=== PATIENT | male | born 1980 | race Caucasian/White ===

== ENCOUNTER 2017-01-11 09:49 | Emergency (ER) | payer OTHER ==
[2017-01-11 10:12] VITALS: BP 134/77
[2017-01-11] MEDS ORDERED: IBUPROFEN 400 MG TABLET PO ONE (11:45)
[2017-01-11] MEDS ORDERED: IBUPROFEN 400 MG TABLET ONE (11:50)
--- NOTE | 2017-01-11 12:30 | ERNOTE ---
Lower Extremity HPI - Narrative Date of Service: 01/11/17 - General Lower Extremities Pain: foot: right, ankle: right Time Seen by Provider: 01/11/17 11:33 Source: patient Exam Limitations: no limitations - Immun/Allergies/Home Medications Immunizations: IMMUNIZATION HX Immunizations Up to Date Yes History of Influenza Vaccine Yes Hx Pneumococcal Vaccination No Allergies/Adverse Reactions: Allergies Allergy/AdvReac Type Severity Reaction Status Date / Time No Known Allergies Allergy Verified 01/11/17 10:12 Home Medications: HOME MEDICATIONS NK [No Home Medication] 01/11/17 [Last Taken Unknown] - History of Present Illness Narrative: This 36-year-old male presents to the emergency room with right ankle and foot pain. States he twisted his ankle at work. He has been taking over- the-counter pain medicine but pain increased and increased swelling today. He was unable to do his normal daily functions without pain. Date (Duration): 01/11/17 Occurred: last week Location of Incident: work Method of Injury: Reports: twisted Loss of Consciousness: Reports: no loss of consciousness Modifying Factors - (Worsens): Reports: movement Associated Symptoms: Reports: unable to bear weight Other Injuries: Reports: none Subsequent Symptoms: Denies: sensory loss, numbness Review of Systems - Review of Systems Constitutional: Present: no symptoms reported EYE: Present: no symptoms reported ENT: Present: no symptoms reported Respiratory: Present: no symptoms reported Cardiology: Present: no symptoms reported Gastrointestinal/Abdominal: Present: no symptoms reported Genitourinary: Present: no symptoms reported Musculoskeletal: Present: See HPI, joint pain, joint swelling Skin: Present: lumps - swollen to later aspect of foot and ankle Neurological: Present: no symptoms reported Endocrine: Present: no symptoms reported Hematologic/Lymphatic: Present: no symptoms reported Psych: Present: no symptoms reported All Other Systems: All systems neg except as marked - Patient's Past Medical History Patient History - Medical: Depression Patient History - Cardiac/Respiratory: No pertinent hx Patient History - Cancer: No Hx of Cancer Patient History - Surgical Procedures: T & A Patient History - Other: None - Social History Living Situations: home Abuse History: No History of abuse Psych History: Hx of Depression Smoking Status: Current every day smoker Have you smoked in the past 12 months: Yes Alcohol Use: occasionally Drug Use: marijuana - Immunizations Immunizations Up to Date: Yes Hx Pneumococcal Vaccination: No History of Influenza Vaccine: Yes Physical Exam - Physical Exam Narrative: Patient has pain to right lateral foot and ankle. Swollen and tender to touch. Patient does have sensation to toes, capillary refill brisk, circulation is intact along with sensation and movement. General Appearance: Present: wd/wn, alert, no apparent distress Eye Exam: Normal inspection: bilateral Ears, Nose, Throat: Present: normal ENT inspection Neck: Present: normal inspection Respiratory: Present: no respiratory distress Cardiovascular/Chest: Present: regular rate, rhythm Peripheral Pulses: N=norm/S=strong/W=weak/B=bound/A=absent: Dorsalis-pedis (R): Normal, Dorsalis-pedis (L): Normal Gastrointestinal/Abdominal: Present: normal bowel sounds Extremity Exam: Present: normal except -, joint swelling - painful swollen ankle and lateral aspect of right foot. Neurological Exam: Present: alert, oriented, normal mood/affect, no motor/ sensory deficits Skin Exam: Present: warm/dry Lymphatic Exam: Present: no adenopathy ED Progress - Date and Time Seen: Date and Time: 01/11/17 12:54 patient refused cam boot, stated he has one at home and will use that one. - Vital Signs Patient's Vital Signs:: I have reviewed the patient's vital signs. Vital Signs: Vital Signs 01/11/17 10:09 Temperature 36.1 C L Pulse Rate 62 Respiratory 13 Rate Blood Pressure 134/77 O2 Sat by Pulse 95 Oximetry - X-Ray X-Ray #1 X-Ray: foot Interpretation: Reviewed by me X-ray Comments: Findings: There are mild midfoot arthritic changes significant only for patient's age. There is a lytic focus in the navicular nonspecific. There is mild spurring of the calcaneus. There is a oblique fracture through the base of the fifth metatarsal. This has somewhat irregular margins suggesting this may be subacute fracture. Clinical correlation is necessary. No other fractures identified. IMPRESSION: OBLIQUE INTRA-ARTICULAR FRACTURE BASE OF THE FIFTH METATARSAL AGE INDETERMINATE. MILD MIDFOOT ARTHRITIC CHANGES. NO OTHER ACUTE OSSEOUS PATHOLOGY IDENTIFIED. Electronically signed by Cecilio Cruz M.D.. X-Ray #2 X-Ray: ankle Interpretation: Reviewed by me X-ray Comments: IMPRESSION: 1. Possible fracture of indeterminate age at the base of the fifth metatarsal bone. Consider dedicated images of the right foot. 2. Anterolateral soft tissue swelling throughout the right ankle. Electronically signed by Rachele Abdi M.D.. - Progress/Reassessment Chief Complaint: Ankle Injury/ Pain Progress:: Improved Plan - Plan Plan: This provider spoke with Dr. Howard. Dr. Howard advised to put patient in a cam walker boot and to keep him nonweight bearing. Patient is to call clinic today and schedule a follow-up apt in the clinic on Wednesday. Patient states he has a cam walker boot at home and he will utilize that one. he is refusing on in the ED. Departure Clinical Impression: Ankle sprain Qualifiers: Encounter type: initial encounter Involved ligament of ankle: other ligament Laterality: right Qualified Code(s): S93.491A - Sprain of other ligament of right ankle, initial encounter Fracture of right foot Qualifiers: Encounter type: initial encounter Fracture type: closed Qualified Code(s): S92.901A - Unspecified fracture of right foot, initial encounter for closed fracture - Departure Disposition: Home Follow Up Needed Condition: Stable Instructions: Cast or Splint Care, [id number], Ankle Pain, Metatarsal Fracture Additional Instructions: Patient is to remain nonweight bearing. Patient is to wear a boot at all times , may take it off during bathing. Patient is to follow up with clinic today and schedule an appointment for Wednesday to see Dr. Howard. Patient may take [id number] pain medications as needed patient will be off of work until he has his follow-up appointment with Dr. Patel. Return to the emergency room if pain is uncontrolled by [id number] pain medications. returned to the emergency room if symptoms become worse or new symptoms arise. Referrals: Erick Howard MD [Staff Physician] -
== END 2017-01-11 12:57 | disposition home or self-care (01) ==
LOC: ER 09:49
DX: S93.491A Sprain of other ligament of right ankle, initial encounter (principal); S92.901A Unspecified fracture of right foot, initial encounter for closed fracture; F17.210 Nicotine dependence, cigarettes, uncomplicated; X50.1XXA Overexertion from prolonged static or awkward postures, initial encounter

== ENCOUNTER 2017-02-22 19:06 | Emergency (ER) | payer SELFPAY ==
[2017-02-22 19:17] VITALS: BP 139/68
--- NOTE | 2017-02-22 19:29 | ERNOTE ---
ENT HPI Date of Service: 02/22/17 Time Seen by Provider: 02/22/17 19:20 Source: patient - Immun/Allergies/Home Medications Immunizations: IMMUNIZATION HX Immunizations Up to Date Yes History of Influenza Vaccine Yes Hx Pneumococcal Vaccination No Allergies/Adverse Reactions: Allergies Allergy/AdvReac Type Severity Reaction Status Date / Time No Known Allergies Allergy Verified 01/11/17 10:12 Home Medications: HOME MEDICATIONS NK [No Home Medication] 01/11/17 [Last Taken Unknown] - History of Present Illness Narrative: . Patient states that he went to bed fine when he woke up this like his gums are swollen. Patient states that the gums on his back Teeth are swollen. Date (Duration): 02/22/17 Severity: Present: mild ENT Location: Present: dental Prearrival Treatment: Present: no prearrival treatment Modifying Factors - Improves: Reports: nothing Modifying Factors - Worsens: Reports: nothing Associated Symptoms - ENT: Reports: denies symptoms. Denies: fever, malaise Prior Treament: Denies: recently seen, treated by physician, similar symptoms before Review of Systems - Review of Systems Constitutional: Present: no symptoms reported EYE: Present: no symptoms reported, double vision Respiratory: Present: no symptoms reported Cardiology: Present: no symptoms reported Gastrointestinal/Abdominal: Present: no symptoms reported Genitourinary: Present: no symptoms reported Musculoskeletal: Present: no symptoms reported Skin: Present: no symptoms reported Neurological: Present: no symptoms reported Endocrine: Present: no symptoms reported Hematologic/Lymphatic: Present: no symptoms reported Psych: Present: no symptoms reported All Other Systems: All systems neg except as marked - Patient's Past Medical History Patient History - Medical: Depression Patient History - Cardiac/Respiratory: No pertinent hx Patient History - Cancer: No Hx of Cancer Patient History - Surgical Procedures: T & A Patient History - Other: None - Social History Living Situations: alone Abuse History: No History of abuse Psych History: Hx of Depression Smoking Status: Current every day smoker Have you smoked in the past 12 months: Yes Do you dip or chew tobacco: No Alcohol Use: occasionally Drug Use: marijuana - Immunizations Immunizations Up to Date: Yes Hx Pneumococcal Vaccination: No History of Influenza Vaccine: Yes Physical Exam - Physical Exam Narrative: Unable to observe any swelling. Patient does have some discoloration to his gums most likely gingivitis. Patient says he does not go to the dentist very often." He does not do that that's not his thing". I attempted to educate this patient on the need for oral care. Patient left AMA General Appearance: Present: wd/wn, alert, no apparent distress Eye Exam: Normal inspection: bilateral Ears, Nose, Throat: Present: normal ENT inspection Neck: Present: normal inspection Respiratory: Present: no respiratory distress, no accessory muscle use Neurological Exam: Present: alert, oriented Skin Exam: Present: normal color, warm/dry ED Progress - Vital Signs Vital Signs: Vital Signs 02/22/17 19:11 Temperature 36.9 C Pulse Rate 68 Respiratory 18 Rate Blood Pressure 139/68 O2 Sat by Pulse 97 Oximetry - Progress/Reassessment Chief Complaint: Dental Problem Progress:: Unchanged Plan - Plan Plan: Patient left AMA. He was educated about good oral hydration. Departure Clinical Impression: Gingivitis - Departure Disposition: Against medical advice
== END 2017-02-22 20:10 | disposition left against medical advice (07) ==
LOC: ER 19:06
DX: K05.10 Chronic gingivitis, plaque induced (principal); Z72.0 Tobacco use

== ENCOUNTER 2017-02-23 10:40 | Emergency (ER) | payer OTHER ==
[2017-02-23 10:47] VITALS: BP 139/79
[2017-02-23] MEDS ORDERED: PENICILLIN V POTASSIUM 250 MG TABLET PO ONE (10:50)
[2017-02-23] MEDS ORDERED: PENICILLIN V POTASSIUM 250 MG TABLET ONE (10:56)
--- NOTE | 2017-02-23 11:06 | ERNOTE ---
ENT HPI Date of Service: 02/23/17 Time Seen by Provider: 02/23/17 10:44 Source: patient Exam Limitations: no limitations - Immun/Allergies/Home Medications Immunizations: IMMUNIZATION HX Immunizations Up to Date Yes History of Influenza Vaccine Yes Hx Pneumococcal Vaccination No Allergies/Adverse Reactions: Allergies Allergy/AdvReac Type Severity Reaction Status Date / Time No Known Allergies Allergy Verified 02/23/17 10:47 Home Medications: HOME MEDICATIONS Penicillin V Potassium [Pen-Vee K] 500 mg PO QID #40 tab 02/23/17 [Last Taken Unknown] - History of Present Illness Narrative: Patient presents with dental pain and facial swelling. He noticed this yesterday when he awoke from a nap. he was seen here but apparently left AMA without ABx. He relates this seems more swollen than yesterday. No fever, no trouble breathing or swallowing. Right sided. No other Sx with it. ENT Location: Present: other - right jaw and tooth Modifying Factors - Improves: Reports: nothing Modifying Factors - Worsens: Reports: nothing Associated Symptoms - ENT: Reports: tooth pain. Denies: fever, cough, voice change, sore throat, drooling, jaw swelling Prior Treament: Reports: recently seen Review of Systems - Review of Systems Constitutional: Absent: fever ENT: Absent: sore throat, throat swelling Respiratory: Absent: shortness of breath Neurological: Absent: weakness - Patient's Past Medical History Patient History - Medical: Depression Patient History - Cardiac/Respiratory: No pertinent hx Patient History - Cancer: No Hx of Cancer Patient History - Surgical Procedures: T & A Patient History - Other: None - Social History Living Situations: alone Abuse History: No History of abuse Psych History: Hx of Depression Smoking Status: Current every day smoker Have you smoked in the past 12 months: Yes Alcohol Use: occasionally Drug Use: marijuana - Immunizations Immunizations Up to Date: Yes Hx Pneumococcal Vaccination: No History of Influenza Vaccine: Yes Physical Exam - Physical Exam General Appearance: Present: alert, no apparent distress Eye Exam: Normal inspection: bilateral, PERRL: bilateral Ears, Nose, Throat: Present: other - He has poor dentition. There are caries right mandibular with tenderenss here and gingival erythema and edema but without clear abscess I can drain. There is some mild right jaw swelling but I cannot identify any clear abscess that I can drain for him. There is no evidence of ANUG or Saurav's angina. Neck: Present: normal inspection, other - no masses, no Saurav's angina Respiratory: Present: no respiratory distress, normal breath sounds, no accessory muscle use, lungs clear Cardiovascular/Chest: Present: regular rate, rhythm Extremity Exam: Present: normal range of motion Neurological Exam: Present: alert, normal mood/affect, no motor/sensory deficits , log cut off sawyer II-XII nml as tested. Absent: motor weakness Skin Exam: Present: normal color, warm/dry ED Progress - Vital Signs Patient's Vital Signs:: I have reviewed the patient's vital signs. Vital Signs: Vital Signs 02/23/17 10:45 Temperature 37.1 C Pulse Rate 66 Respiratory 14 Rate Blood Pressure 139/79 O2 Sat by Pulse 96 Oximetry - Progress/Reassessment Chief Complaint: Dental Problem Progress Note-Subjective: 02/23/17 11:05 Needs dental f/u and ABx. I called dental clinic. He can go in at 8am and wait to be seen tomorrow. I instructed him to do so. No toxicity or Saurav's angina. Departure Clinical Impression: Pain, dental - Departure Disposition: Home self-care Condition: Stable Instructions: Dental Abscess, [id number] Additional Instructions: Take antibiotics as directed. You need to be seen by a dentist as soon as possible, tomorrow at the latest. Ibuprofen/Tylenol. Return for fever, increased swelling, trouble breathing or swallowing or if your condition worsens or changes in any way. Prescriptions: Penicillin V Potassium [Pen-Vee K] 500 mg PO QID #40 tab
== END 2017-02-23 11:00 | disposition home or self-care (01) ==
LOC: ER 10:40
DX: K08.89 Other specified disorders of teeth and supporting structures (principal); F17.210 Nicotine dependence, cigarettes, uncomplicated

== ENCOUNTER 2017-12-15 14:07 | Emergency (ER) | payer OTHER ==
[2017-12-15 14:14] VITALS: BP 145/95
[2017-12-15] MEDS ORDERED: IBUPROFEN 400 MG TABLET PO ONE (15:30)
[2017-12-15] MEDS ORDERED: IBUPROFEN 400 MG TABLET ONE (15:31)
--- NOTE | 2017-12-15 15:36 | ERNOTE ---
Lower Extremity HPI - General Lower Extremities Pain: foot: right Time Seen by Provider: 12/15/17 14:31 Source: patient Exam Limitations: no limitations - Immun/Allergies/Home Medications Immunizations: IMMUNIZATION HX Immunizations Up to Date Yes History of Influenza Vaccine Yes Hx Pneumococcal Vaccination No Allergies/Adverse Reactions: Allergies Allergy/AdvReac Type Severity Reaction Status Date / Time No Known Allergies Allergy Verified 12/15/17 14:13 Home Medications: HOME MEDICATIONS NK [No Home Medication] 12/15/17 [Last Taken Unknown] - History of Present Illness Narrative: Patient started to have right foot pain yesterday, he was able to work as a [employer] , no pain when not weight bearing, no injury. This morning when he first put weight on his foot the pain was unbearable, has not tried any pain meds yet Occurred: yesterday Method of Injury: Reports: no apparent injury Modifying Factors - (Worsens): Reports: other - weight bearing Other Injuries: Reports: none Subsequent Symptoms: Denies: sensory loss Review of Systems - Review of Systems Constitutional: Absent: recent illness ENT: Absent: nasal drainage, sore throat Respiratory: Absent: shortness of breath, cough Cardiology: Absent: chest pain Gastrointestinal/Abdominal: Absent: nausea, abdominal pain Genitourinary: Present: no symptoms reported Musculoskeletal: Present: See HPI Skin: Absent: rash Neurological: Absent: See HPI, weakness, numbness - Patient's Past Medical History Patient History - Medical: Depression Patient History - Cardiac/Respiratory: No pertinent hx Patient History - Cancer: No Hx of Cancer Patient History - Surgical Procedures: T & A Patient History - Other: None - Social History Living Situations: home Abuse History: No History of abuse Psych History: Hx of Depression Smoking Status: Current every day smoker Have you smoked in the past 12 months: Yes Do you dip or chew tobacco: No Alcohol Use: none Drug Use: none - Immunizations Immunizations Up to Date: Yes Hx Pneumococcal Vaccination: No History of Influenza Vaccine: Yes Physical Exam - Physical Exam General Appearance: Present: wd/wn, alert, no apparent distress, obese Respiratory: Present: no respiratory distress Extremity Exam: Present: normal inspection, normal range of motion, other - tender on left plantar surface just distal no heel, no other tenderness Neurological Exam: Present: alert, oriented, no motor/sensory deficits Skin Exam: Present: normal color, warm/dry ED Progress - Vital Signs Patient's Vital Signs:: I have reviewed the patient's vital signs. Vital Signs: Vital Signs 12/15/17 14:10 Temperature 37 C Pulse Rate 94 Respiratory 22 H Rate Blood Pressure 145/95 O2 Sat by Pulse 94 Oximetry - Progress/Reassessment Chief Complaint: Lower Extremity Pain/ Injury Departure Clinical Impression: Plantar fasciitis of right foot - Departure Disposition: Home self-care Condition: Good Instructions: Plantar Fasciitis, Form - Excuse from Work, School, or Physical Activity Additional Instructions: take over counter ibuprofen (200mg) four tablets three times a day it is very important that you do the foot and calf stretches as discussed Referrals: Erick Howard MD [Staff Physician] -
== END 2017-12-15 15:38 | disposition home or self-care (01) ==
LOC: ER 14:07
DX: M72.2 Plantar fascial fibromatosis; F17.200 Nicotine dependence, unspecified, uncomplicated

== ENCOUNTER 2019-12-13 21:22 | Inpatient (IN) ==
--- NOTE | 2019-12-13 21:46 | ERNOTE ---
Dyspnea - General Presenting Symptoms: shortness of breath Time Seen by Provider: 12/13/19 21:30 Source: patient Exam Limitations: no limitations - Immun/Allergies/Home Medications Immunizations: IMMUNIZATION HX Immunizations Up to Date Yes History of Influenza Vaccine Yes Hx Pneumococcal Vaccination No Allergies/Adverse Reactions: Allergies No Known Allergies Allergy (Verified 08/03/19 13:57) Home Medications: HOME MEDICATIONS varenicline 0.5 mg (11)-1 mg (42) tablets in a dose pack See Rx Instructions PO PER PKG DIR #53 tab 08/03/19 [Last Taken Unknown] rosuvastatin 40 mg tablet 40 mg PO DAILY #30 tab 08/09/19 [Last Taken Unknown] - History of Present Illness Narrative: Patient presents today with oxygen saturations in the 70s. His states that she is noticed he has gotten worse and worse over the past couple of weeks. He does have an appointment with Dr. Tran to address these issues tomorrow but tonight noticed he had fallen asleep and was breathing very irregularly and got concerned. 2 to 3 weeks ago his CPAP mask broke and he has not been able to use it for that amount of time. Severity: moderate, severe Treatment [employer]: none Initiating event: Reports: other Frequency of episodes: Reports: no prior episodes Associated Symptoms-Dyspnea: Reports: denies symptoms Review of Systems - Review of Systems Constitutional: Absent: recent illness, fever, chills EYE: Absent: vision changes ENT: Present: nose congestion, nasal drainage Respiratory: Present: shortness of breath. Absent: cough Cardiology: Absent: chest pain, palpitations Gastrointestinal/Abdominal: Absent: nausea, vomiting Genitourinary: Absent: frequency, dysuria Musculoskeletal: Absent: back pain, muscle pain Skin: Absent: rash Neurological: Absent: headache, dizziness/light-headedness Endocrine: Absent: excessive sweating, flushing Hematologic/Lymphatic: Absent: easy bruising, easy bleeding Medical History (Last Reviewed 12/13/19 @ 21:42 by Jordan Mace DO) Obesity (Chronic) STARR (obstructive sleep apnea) Obesity (BMI 30.0-34.9) Surgical History: Surgical History (Last Reviewed 12/13/19 @ 21:42 by Jordan Mace DO) H/O hand surgery Family History: Family History (Last Reviewed 12/13/19 @ 21:42 by Jordan Mace DO) Mother Diabetes COPD (chronic obstructive pulmonary disease) CHF (congestive heart failure) Father CHF (congestive heart failure) COPD (chronic obstructive pulmonary disease) Cancer Social History: (Last Reviewed 12/13/19 @ 21:42 by Jordan Mace DO) Social History: Marital status: Single current occupational status: employed current occupation: the [employer] Highest education level completed: some college, no degree Service: No Tobacco: Smoking Status: Current every day smoker tobacco type: cigarettes Smoking cigarettes per day: 20.0 Smoking packs per day: 1.0 Years smoked: 20 Smoking pack-years: 20.00 Alcohol: alcohol intake: never Substance Use: substance use type: does not use Dietary Habits: caffeine: Yes Physical Exam - Physical Exam General Appearance: Present: wd/wn, alert, mild distress Head Exam: Present: normal inspection, no evidence of injury Eye Exam: Normal inspection: bilateral Neck: Present: normal inspection, nontender, supple Respiratory: Present: accessory muscle use, decreased breath sounds Cardiovascular/Chest: Present: regular rate, rhythm, no murmur Gastrointestinal/Abdominal: Present: normal bowel sounds, nontender, nondistended Back Exam: Present: normal inspection, normal range of motion Extremity Exam: Present: extremity edema - 4+ B/L Neurological Exam: Present: alert, oriented, normal mood/affect, no motor/sensory deficits Skin Exam: Present: normal color, warm/dry Lymphatic Exam: Present: no adenopathy Progress - Results and Orders Patient's Lab Results:: I have reviewed the patient's lab results. - Vital Signs Patient's Vital Signs:: I have reviewed the patient's vital signs. - EKG EKG #1 EKG: NSR, nonspecific ST T wave changes EKG read: Interp. by me - X-Ray X-Ray #1 X-Ray: chest Interpretation: Interp. by me X-ray Comments: Moderate pulmonary edema, limited by body habitus. - CT/Ultrasound CT/Ultrasound Narrative: CTA chest: 1. Normal CT angiography of the chest. 2. Negative for proximal artery pulmonary embolus. Distal quarternary branches are poorly visualized due to attenuation from large PMI and noncomplex bolus. 3. Pulmonary hypertension - Progress/Reassessment Progress:: Improved Progress Note-Subjective: 12/14/19 02:05 I spoke with the patient he wanted to go outside and have a cigarette but I did convince him we would put a patch on and he agreed to admission. Spoke with Dr. Romeo he agrees with admission for oxygen, IV antibiotics and further monitoring. Departure Clinical Impression: Bronchitis, Hypoxia, Hypercarbia - Departure Disposition: Still a patient Condition: Serious
[2019-12-13 22:08] LABS: Hemoglobin 14.7 gm/dL (13.5-18.0); Mean Cell Volume 98.2 fl (78-100); Mean Corpuscular Hemoglobin 29.5 pg (27-31); Mean Platelet Volume 10.2 fl (8-11.3); Neutrophil # 9.6 K/mm3 (1.3-6.0); Neutrophil % 67.6 % (42-75.0); Platelet Count 156 K/mm3 (150-450); Red Blood Count 4.99 M/mm3 (4.7-6.0); Red Cell Distribution Width 18.7 % (11.5-14.0); White Blood Count 14.2 K/mm3 (4.0-10.5)
[2019-12-13] MEDS ORDERED: FUROSEMIDE 10 MG/ML VIAL IV ONE (22:18)
[2019-12-13 22:27] LABS: ALT 61 U/L (19-67); AST 36 U/L (0-48); Albumin * 3.2 gm/dl (3.4-5.0); Alkaline Phosphatase * 79 U/L (50-170); Anion Gap 8.3 mmol/L (6.8-13.8); BNP * 43 pg/mL (5-140); BUN/Creatinine Ratio 10.2 (9.0-21.6); Bilirubin, Total 0.4 mg/dL (0.0-1.1); Blood Urea Nitrogen 10 mg/dL (6-23); Ca. Corrected For Albumin 8.9 mg/dL (8.4-10.2); Calcium * 8.6 mg/dL (7.9-10.9); Carbon Dioxide 34.6 mmol/L (24-32.6); Chloride 101 mmol/L (97-106); Glucose * 206 mg/dL (70-110); Potassium 3.9 mmol/L (3.4-4.6); Sodium 140 mmol/L (132-142); Troponin I Less than 0.017 ng/mL (0.00-0.10)
[2019-12-14] MEDS ORDERED: cefTRIAXone SODIUM 1,000 MG/100 ML BAG IV ONE (01:54)
[2019-12-14] MEDS: NICOTINE 21 MG PATC TD SCH (02:18)
[2019-12-14] MEDS: ALBUTEROL SULFATE/IPRATROPIUM 3 ML NEBU IH SCH ×5 (07:59→23:11)
[2019-12-14] MEDS ORDERED: NORMAL SALINE IV ONE (08:00)
[2019-12-14] MEDS ORDERED: METHYLPREDNISOLONE SOD SUCC IV ONE (08:00)
[2019-12-14] MEDS ORDERED: ACETAMINOPHEN 325 MG TABLET PO PRN (08:02)
[2019-12-14 08:03] LABS: Hematocrit 54.5 % (42.0-52.0); Hemoglobin 16.1 gm/dL (13.5-18.0); Mean Cell Volume 99.8 fl (78-100); Mean Corpuscular Hemoglobin 29.5 pg (27-31); Mean Corpuscular Hgb Conc 29.5 g/dl (32-36); Mean Platelet Volume 9.9 fl (8-11.3); NRBC# 0.1 k/mm3 (0-1); Neutrophil % 69.8 % (42-75.0); Platelet Count 148 K/mm3 (150-450); Red Blood Count 5.46 M/mm3 (4.7-6.0); Red Cell Distribution Width 19.5 % (11.5-14.0); White Blood Count 14.3 K/mm3 (4.0-10.5)
[2019-12-14 08:12] LABS: Anion Gap 9.3 mmol/L (6.8-13.8); BUN/Creatinine Ratio 7.6 (9.0-21.6); Calcium * 8.5 mg/dL (7.9-10.9); Carbon Dioxide 36.7 mmol/L (24-32.6); Estimated Creat Clear 115.1
[2019-12-14] MEDS: ENOXAPARIN SODIUM 40 MG/0.4 ML SYRG SC SCH (08:50)
--- NOTE | 2019-12-14 12:27 | HP ---
Chief Complaint - Chief Complaint Date of Service: 12/14/19 Time of Service: 11:40 Chief Complaint: Obtunded History of Present Illness: I have seen Mr. Cruz one time in the office on August 03, 2019. He has obstructive sleep apnea, smokes cigarettes, and has a BMI over 50. For the last 2 months he is been without his usual BiPAP machine at home. It is broken. For the last 2 weeks he has had increasing problems breathing and a progressive cough. No fever chills or sweats. For a few days prior to this hospitalization he has been somewhat more somnolent. An increase in somnolence precipitated his transfer to our hospital ER via ambulance. It was thought to possibly have some pulmonary edema, however it is hard to evaluate his chest x-ray due to his large size. He was given 1 dose of IV Lasix in the emergency room. His BNP today was normal, so that in conjunction with the history and physical exam leads me to believe he has acute bronchitis leading to acute on chronic respiratory failure. His chest x-ray shows no infil trate. I reviewed both pictures and the report. His blood gases in the emergency room showed hypercarbia, hypoxemia and significant acidosis. Acidosis is respiratory. His most recent blood gases f rom this morning are a little better. We will continue to follow this. I suspect he not only has obstructive sleep apnea but also pickwickian syndrome. Most likely he has chronic hypoxemia and hypercarbia, to what extent is unknown, as he does not have prior blood gases. In the emergency room he was also started on IV antibiotics which we will continue. This morning I added DuoNeb nebulizer treatments, IV steroids and adjusted his BiPAP settings. His CBC showed on admission and again on repeat this morning a slight elevation in white blood cell count. This morning his chemistries show a slightly high potassium. We will follow both his blood chemistries and blood count. His ex- who is present said that in addition to the above problems, he has not slept well for at least 2 weeks and probably longer. He was in fact, exhausted. His best friend plus his brother were also present in the room at the time of my evaluation today and I explained in detail what I thought we were dealing with and what the treatment plan was. it is uncertain but he will probably be here in the hospital for at least 2 or 3 more days Medical History (Last Reviewed 12/14/19 @ 12:21 by Gamaliel Menjivar MD) Obesity (Chronic) STARR (obstructive sleep apnea) Obesity (BMI 30.0-34.9) Surgical History: Surgical History (Last Reviewed 12/14/19 @ 12:21 by Gamaliel Menjivar MD) H/O hand surgery Family History: Family History (Last Reviewed 12/14/19 @ 12:21 by Gamaliel Menjivar MD) Mother Diabetes COPD (chronic obstructive pulmonary disease) CHF (congestive heart failure) Father CHF (congestive heart failure) COPD (chronic obstructive pulmonary disease) Cancer Social History: (Last Reviewed 12/14/19 @ 12:21 by Gamaliel Menjivar MD) Social History: Marital status: Single current occupational status: employed current occupation: [employer] Highest education level completed: some college, no degree Service: No Tobacco: Smoking Status: Current every day smoker tobacco type: cigarettes Smoking cigarettes per day: 20.0 Smoking packs per day: 1.0 Years smoked: 20 Smoking pack-years: 20.00 Alcohol: alcohol intake: never Substance Use: substance use type: does not use Dietary Habits: caffeine: Yes Review Of Systems (GEN) - Review of Systems Generalized/Overall Review: Present: No Symptoms Reported - Patient is obtunded and is unable to provide a review of systems. During my exam he opened his eyes and smiled slightly, but immediately his eyes were closed again. Immunizations: IMMUNIZATION HX Immunizations Up to Date Yes History of Influenza Vaccine Yes Hx Pneumococcal Vaccination No Allergies/Adverse Reactions: Allergies Allergy/AdvReac Type Severity Reaction Status Date / Time No Known Allergies Allergy Verified 08/03/19 13:57 Home Medications: HOME MEDICATIONS varenicline 0.5 mg (11)-1 mg (42) tablets in a dose pack See Rx Instructions PO PER PKG DIR #53 tab 08/03/19 [Last Taken Unknown] rosuvastatin 40 mg tablet 40 mg PO DAILY #30 tab 08/09/19 [Last Taken Unknown] Exam - Exam Vital Signs: Vital Signs - Last Taken Temp 37.1 C 12/14/19 10:00 Pulse 88 12/14/19 11:44 Resp 28 H 12/14/19 11:44 BP 150/78 H 12/14/19 10:00 Pulse Ox 96 12/14/19 11:44 Constitutional: Present: Well developed, No distress, Obtunded, Morbidly obese ENT Exam: Present: normal ENT inspection Eye Exam: bilateral eye: normal inspection Neck: Present: normal inspection, trachea midline. Absent: lymphadenopathy (R), lymphadenopathy (L), thyromegaly Back Exam: Present: normal inspection Breasts: Present: Other - Male gynecomastia Respiratory: Present: no respiratory distress, decreased breath sounds, other - Scattered wheezes and rhonchi Cardiovascular/Chest: Present: regular rate, rhythm, no gallop, no JVD, no murmur, edema - 2-3+ edema each lower extremity. This is chronic. Peripheral Pulses: carotid (R): 1+, carotid (L): 1+, dorsalis-pedis (R): 1+, dorsalis-pedis (L): 1+ Abdomen: Present: Normal bowel sounds, soft, nontender, nondistended, no hepatospenomegaly, obese /Rectal: Present: Exam deferred Extremity: Present: normal capillary refill, swelling Skin Exam: Present: normal color, warm/dry, no cyanosis Lymphatic: Present: no adenopathy Neurologic: Present: other - Obtunded Appearance: Present: appropriate appearance Eye contact: Absent: good eye contact, normal speech Thoughts: Present: other - Unknown. Obtunded. Diagnostic Studies: Abnormal Lab Results 12/13/19 12/13/19 12/13/19 Range/Units 21:47 21:48 21:48 WBC 14.2 H (4.0-10.5) K/mm3 Hct (42.0-52.0) % MCHC 30.0 L (32-36) g/dl RDW 18.7 H (11.5-14.0) % Plt Count (150-450) K/mm3 Immature Gran % (Auto) 3.20 H (0.001-0.429) % Immature Gran # (Auto) 0.45 H (0.000-0.0310) K/mm3 Lymphocytes % 18.2 L (20-51) % Eosinophils % 3.3 H (0.0-3.0) % Neutrophils # 9.6 H (1.3-6.0) K/mm3 Monocytes # (0.0-1.0) k/mm3 D-Dimer (0.19-0.49) ug/mL pCO2 (35.0-48.0) mmHg pO2 (83.0-108.0) mmHg HCO3 (21.0-28.0) mmol/L Total CO2 (19.0-24.0) mmol/L Base Excess (-2.0-3.0) mmol/L ABG pH (7.35-7.45) ABG O2 Sat (Measured) (94.0-98.0) % Potassium (3.4-4.6) mmol/L Carbon Dioxide 34.6 H (24-32.6) mmol/L BUN/Creatinine Ratio (9.0-21.6) Random Glucose 206 H (70-110) mg/dL Lactic Acid, Venous 2.1 H (0.4-2.0) mmol/L Albumin 3.2 L (3.4-5.0) gm/dl 12/13/19 12/13/19 12/14/19 Range/Units 21:48 22:57 04:42 WBC (4.0-10.5) K/mm3 Hct (42.0-52.0) % MCHC (32-36) g/dl RDW (11.5-14.0) % Plt Count (150-450) K/mm3 Immature Gran % (Auto) (0.001-0.429) % Immature Gran # (Auto) (0.000-0.0310) K/mm3 Lymphocytes % (20-51) % Eosinophils % (0.0-3.0) % Neutrophils # (1.3-6.0) K/mm3 Monocytes # (0.0-1.0) k/mm3 D-Dimer 0.69 H (0.19-0.49) ug/mL pCO2 67.8 H 100.5 H* (35.0-48.0) mmHg pO2 77.6 L (83.0-108.0) mmHg HCO3 29.5 H 36.6 H (21.0-28.0) mmol/L Total CO2 31.6 H 39.7 H (19.0-24.0) mmol/L Base Excess 4.0 H (-2.0-3.0) mmol/L ABG pH 7.26 L 7.18 L* (7.35-7.45) ABG O2 Sat (Measured) 93.1 L 92.9 L (94.0-98.0) % Potassium (3.4-4.6) mmol/L Carbon Dioxide (24-32.6) mmol/L BUN/Creatinine Ratio (9.0-21.6) Random Glucose (70-110) mg/dL Lactic Acid, Venous (0.4-2.0) mmol/L Albumin (3.4-5.0) gm/dl 12/14/19 12/14/19 12/14/19 Range/Units 06:05 07:51 07:51 WBC 14.3 H (4.0-10.5) K/mm3 Hct 54.5 H (42.0-52.0) % MCHC 29.5 L (32-36) g/dl RDW 19.5 H (11.5-14.0) % Plt Count 148 L (150-450) K/mm3 Immature Gran % (Auto) 3.10 H (0.001-0.429) % Immature Gran # (Auto) 0.45 H (0.000-0.0310) K/mm3 Lymphocytes % 15.5 L (20-51) % Eosinophils % 3.2 H (0.0-3.0) % Neutrophils # 10.0 H (1.3-6.0) K/mm3 Monocytes # 1.1 H (0.0-1.0) k/mm3 D-Dimer (0.19-0.49) ug/mL pCO2 79.0 H* (35.0-48.0) mmHg pO2 70.1 L (83.0-108.0) mmHg HCO3 (21.0-28.0) mmol/L Total CO2 29.8 H (19.0-24.0) mmol/L Base Excess -3.2 L (-2.0-3.0) mmol/L ABG pH 7.16 L* (7.35-7.45) ABG O2 Sat (Measured) 88.2 L (94.0-98.0) % Potassium 5.0 H D (3.4-4.6) mmol/L Carbon Dioxide 36.7 H (24-32.6) mmol/L BUN/Creatinine Ratio 7.6 L (9.0-21.6) Random Glucose 158 H (70-110) mg/dL Lactic Acid, Venous (0.4-2.0) mmol/L Albumin (3.4-5.0) gm/dl 12/14/19 Range/Units 09:30 WBC (4.0-10.5) K/mm3 Hct (42.0-52.0) % MCHC (32-36) g/dl RDW (11.5-14.0) % Plt Count (150-450) K/mm3 Immature Gran % (Auto) (0.001-0.429) % Immature Gran # (Auto) (0.000-0.0310) K/mm3 Lymphocytes % (20-51) % Eosinophils % (0.0-3.0) % Neutrophils # (1.3-6.0) K/mm3 Monocytes # (0.0-1.0) k/mm3 D-Dimer (0.19-0.49) ug/mL pCO2 70.7 H* (35.0-48.0) mmHg pO2 43.1 L (83.0-108.0) mmHg HCO3 33.2 H (21.0-28.0) mmol/L Total CO2 35.3 H (19.0-24.0) mmol/L Base Excess 3.8 H (-2.0-3.0) mmol/L ABG pH 7.29 L (7.35-7.45) ABG O2 Sat (Measured) 71.7 L (94.0-98.0) % Potassium (3.4-4.6) mmol/L Carbon Dioxide (24-32.6) mmol/L BUN/Creatinine Ratio (9.0-21.6) Random Glucose (70-110) mg/dL Lactic Acid, Venous (0.4-2.0) mmol/L Albumin (3.4-5.0) gm/dl Laboratory Results WBC 14.3 K/mm3 (4.0-10.5) H 12/14/19 07:51 RBC 5.46 M/mm3 (4.7-6.0) 12/14/19 07:51 Hgb 16.1 gm/dL (13.5-18.0) 12/14/19 07:51 Hct 54.5 % (42.0-52.0) H 12/14/19 07:51 MCV 99.8 fl (78-100) 12/14/19 07:51 MCH 29.5 pg (27-31) 12/14/19 07:51 MCHC 29.5 g/dl (32-36) L 12/14/19 07:51 RDW 19.5 % (11.5-14.0) H 12/14/19 07:51 Plt Count 148 K/mm3 (150-450) L 12/14/19 07:51 MPV 9.9 fl (8-11.3) 12/14/19 07:51 Immature Gran % (Auto) 3.10 % (0.001-0.429) H 12/14/19 07:51 Immature Gran # (Auto) 0.45 K/mm3 (0.000-0.0310) H 12/14/19 07:51 Neutrophils % 69.8 % (42-75.0) 12/14/19 07:51 Lymphocytes % 15.5 % (20-51) L 12/14/19 07:51 Monocytes % 7.4 % (0.0-9) 12/14/19 07:51 Eosinophils % 3.2 % (0.0-3.0) H 12/14/19 07:51 Basophils % 1.0 % (0.0-1.0) 12/14/19 07:51 Nucleated RBC % 0.1 k/mm3 (0-1) 12/14/19 07:51 Neutrophils # 10.0 K/mm3 (1.3-6.0) H 12/14/19 07:51 Lymphocytes # 2.21 k/mm3 (1.5-3.5) 12/14/19 07:51 Monocytes # 1.1 k/mm3 (0.0-1.0) H 12/14/19 07:51 Eosinophils # 0.5 k/mm3 (0.0-0.7) 12/14/19 07:51 Absolute Basophils 0.1 k/mm3 (0.0-0.1) 12/14/19 07:51 D-Dimer 0.69 ug/mL (0.19-0.49) H 12/13/19 21:48 pCO2 70.7 mmHg (35.0-48.0) H* 12/14/19 09:30 pO2 43.1 mmHg (83.0-108.0) L 12/14/19 09:30 HCO3 33.2 mmol/L (21.0-28.0) H 12/14/19 09:30 Total CO2 35.3 mmol/L (19.0-24.0) H 12/14/19 09:30 Base Excess 3.8 mmol/L (-2.0-3.0) H 12/14/19 09:30 ABG pH 7.29 (7.35-7.45) L 12/14/19 09:30 ABG O2 Sat (Measured) 71.7 % (94.0-98.0) L 12/14/19 09:30 Sodium 140 mmol/L (132-142) 12/14/19 07:51 Plasma Sodium 141 mmol/L (130-142) 12/14/19 07:51 Potassium 5.0 mmol/L (3.4-4.6) H D 12/14/19 07:51 Chloride 99 mmol/L (97-106) 12/14/19 07:51 Carbon Dioxide 36.7 mmol/L (24-32.6) H 12/14/19 07:51 Anion Gap 9.3 mmol/L (6.8-13.8) 12/14/19 07:51 BUN 8 mg/dL (6-23) 12/14/19 07:51 Creatinine 1.05 mg/dL (0.4-1.4) 12/14/19 07:51 Est GFR (Non-Af Amer) 84 mL/min (60-130) 12/14/19 07:51 BUN/Creatinine Ratio 7.6 (9.0-21.6) L 12/14/19 07:51 Random Glucose 158 mg/dL (70-110) H 12/14/19 07:51 Lactic Acid, Venous 1.3 mmol/L (0.4-2.0) 12/14/19 04:04 Calcium 8.5 mg/dL (7.9-10.9) 12/14/19 07:51 Calcium Adj for Albumin 8.9 mg/dL (8.4-10.2) 12/13/19 21:48 Total Bilirubin 0.4 mg/dL (0.0-1.1) 12/13/19 21:48 AST 36 U/L (0-48) 12/13/19 21:48 ALT 61 U/L (19-67) 12/13/19 21:48 Alkaline Phosphatase 79 U/L (50-170) 12/13/19 21:48 Troponin I Less than 0.017 ng/mL (0.00-0.10) 12/13/19 21:48 B-Natriuretic Peptide 34 pg/mL (5-140) 12/14/19 07:51 Total Protein 7.0 gm/dL (6.2-8.2) 12/13/19 21:48 Albumin 3.2 gm/dl (3.4-5.0) L 12/13/19 21:48 Influenza Type A Ag Negative (NEGATIVE) 12/14/19 01:05 Influenza Type B Ag Negative (NEGATIVE) 12/14/19 01:05 Assessment/Plan - Assessment/Plan (1) Bronchitis Assessment: Plan nebulized DuoNeb, IV antibiotics, and IV steroids Problem: Acute (2) Acute and chronic respiratory failure Assessment: Continue BiPAP. Adjust settings as needed. Continue supplemental oxygen. Follow blood gases. (Respiratory therapist thought most recent blood gas from this morning may have been mixed venous arterial). Problem: Acute Qualifiers: Respiratory failure complication: hypoxia and hypercapnia Qualified Code(s): J96.21 - Acute and chronic respiratory failure with hypoxia; J96.22 - Acute and chronic respiratory failure with hypercapnia (3) Morbid obesity with body mass index (BMI) of 50.0 to 59.9 in adult Assessment: At some point in the future he might be a candidate for bariatric surgery Problem: Chronic (4) Pickwickian syndrome Problem: Chronic (5) Tobacco abuse Problem: Chronic (6) STARR (obstructive sleep apnea) Problem: Chronic
[2019-12-14] MEDS: METHYLPREDNISOLONE SOD SUCC/PF 125 MG/2 ML VIAL IV SCH ×2 (17:25→21:32)
[2019-12-15] MEDS: ALBUTEROL SULFATE/IPRATROPIUM 3 ML NEBU IH SCH ×7 (02:25→22:16)
[2019-12-15] MEDS: NICOTINE 21 MG PATC TD SCH (05:28)
[2019-12-15] MEDS: METHYLPREDNISOLONE SOD SUCC/PF 125 MG/2 ML VIAL IV SCH ×4 (05:34→22:02)
[2019-12-15 06:35] LABS: Hematocrit 51.5 % (42.0-52.0); Hemoglobin 15.3 gm/dL (13.5-18.0); Mean Cell Volume 98.3 fl (78-100); Mean Corpuscular Hemoglobin 29.2 pg (27-31); Mean Corpuscular Hgb Conc 29.7 g/dl (32-36); Mean Platelet Volume 10.3 fl (8-11.3); NRBC# 0.1 k/mm3 (0-1); Neutrophil # 16.8 K/mm3 (1.3-6.0); Neutrophil % 84.7 % (42-75.0); Platelet Count 171 K/mm3 (150-450); Red Blood Count 5.24 M/mm3 (4.7-6.0); Red Cell Distribution Width 18.1 % (11.5-14.0); White Blood Count 19.8 K/mm3 (4.0-10.5)
[2019-12-15 06:38] LABS: Anion Gap 9.7 mmol/L (6.8-13.8); BUN/Creatinine Ratio 10.1 (9.0-21.6); Calcium * 8.9 mg/dL (7.9-10.9); Carbon Dioxide 34.4 mmol/L (24-32.6); Estimated Creat Clear 110.9; Potassium 5.1 mmol/L (3.4-4.6)
--- NOTE | 2019-12-15 06:51 | PN ---
Subjective - Date and Time Seen Date: 12/15/19 Time: 06:10 Subjective Narrative: Awake eating breakfast! Rhinorrhea, post nasal drip and nonproductive cough. Feels much better. ABGs, CBC and BMP still pending. Vitals stable. O2 sats in the low to mid 90s with 6 liters nc O2. Bipap machine at home has been broken at least a month or two. Brought up the possibility of bariatric surgery today. Objective - Review of Systems Generalized/Overall Review: Denies: Weakness, Chills, Fever EENTM: Denies: Eye Pain, Blurred Vision Respiratory: Reports: Cough, Shortness of Breath Cardiac: Denies: Chest Pain, Palpitations Abdominal: Denies: Nausea, Abdominal Pain, Constipation, Diarrhea Genitourinary Symptoms: Denies: Burning, Urgency, Frequency Musculoskeletal Complaints: Reports: Back Pain - chronic low back. Denies: Joint Pain Neurological: Denies: Headache, Anxiety, Depressed Skin: Denies: Lesions, Rash Endocrine: Reports: Intolerance to Heat. Denies: Intolerance to Cold Misc: All systems neg except as marked - Vitals Vitals: Last Vital Signs Temp 36.3 C 12/15/19 02:02 Pulse 88 12/15/19 06:05 Resp 20 12/15/19 06:05 BP 121/61 12/15/19 02:02 Pulse Ox 95 12/15/19 05:55 - Abnormal Lab Findings Abnormal Lab Findings: Abnormal Lab Results 12/14/19 12/14/19 12/14/19 Range/Units 07:51 07:51 09:30 WBC 14.3 H (4.0-10.5) K/mm3 Hct 54.5 H (42.0-52.0) % MCHC 29.5 L (32-36) g/dl RDW 19.5 H (11.5-14.0) % Plt Count 148 L (150-450) K/mm3 Immature Gran % (Auto) 3.10 H (0.001-0.429) % Immature Gran # (Auto) 0.45 H (0.000-0.0310) K/mm3 Neutrophils % (42-75.0) % Lymphocytes % 15.5 L (20-51) % Eosinophils % 3.2 H (0.0-3.0) % Neutrophils # 10.0 H (1.3-6.0) K/mm3 Monocytes # 1.1 H (0.0-1.0) k/mm3 pCO2 70.7 H* (35.0-48.0) mmHg pO2 43.1 L (83.0-108.0) mmHg HCO3 33.2 H (21.0-28.0) mmol/L Total CO2 35.3 H (19.0-24.0) mmol/L Base Excess 3.8 H (-2.0-3.0) mmol/L ABG pH 7.29 L (7.35-7.45) ABG O2 Sat (Measured) 71.7 L (94.0-98.0) % Potassium 5.0 H D (3.4-4.6) mmol/L Chloride (97-106) mmol/L Carbon Dioxide 36.7 H (24-32.6) mmol/L BUN/Creatinine Ratio 7.6 L (9.0-21.6) Random Glucose 158 H (70-110) mg/dL 12/14/19 12/14/19 12/15/19 Range/Units 13:00 17:03 06:20 WBC 19.8 H D (4.0-10.5) K/mm3 Hct (42.0-52.0) % MCHC 29.7 L (32-36) g/dl RDW 18.1 H (11.5-14.0) % Plt Count (150-450) K/mm3 Immature Gran % (Auto) 2.20 H (0.001-0.429) % Immature Gran # (Auto) 0.44 H (0.000-0.0310) K/mm3 Neutrophils % 84.7 H (42-75.0) % Lymphocytes % 8.9 L (20-51) % Eosinophils % (0.0-3.0) % Neutrophils # 16.8 H (1.3-6.0) K/mm3 Monocytes # (0.0-1.0) k/mm3 pCO2 69.9 H 64.9 H (35.0-48.0) mmHg pO2 64.0 L 79.4 L (83.0-108.0) mmHg HCO3 31.1 H 28.3 H (21.0-28.0) mmol/L Total CO2 33.2 H 30.3 H (19.0-24.0) mmol/L Base Excess (-2.0-3.0) mmol/L ABG pH 7.27 L 7.26 L (7.35-7.45) ABG O2 Sat (Measured) 88.6 L 93.6 L (94.0-98.0) % Potassium (3.4-4.6) mmol/L Chloride (97-106) mmol/L Carbon Dioxide (24-32.6) mmol/L BUN/Creatinine Ratio (9.0-21.6) Random Glucose (70-110) mg/dL 12/15/19 Range/Units 06:20 WBC (4.0-10.5) K/mm3 Hct (42.0-52.0) % MCHC (32-36) g/dl RDW (11.5-14.0) % Plt Count (150-450) K/mm3 Immature Gran % (Auto) (0.001-0.429) % Immature Gran # (Auto) (0.000-0.0310) K/mm3 Neutrophils % (42-75.0) % Lymphocytes % (20-51) % Eosinophils % (0.0-3.0) % Neutrophils # (1.3-6.0) K/mm3 Monocytes # (0.0-1.0) k/mm3 pCO2 (35.0-48.0) mmHg pO2 (83.0-108.0) mmHg HCO3 (21.0-28.0) mmol/L Total CO2 (19.0-24.0) mmol/L Base Excess (-2.0-3.0) mmol/L ABG pH (7.35-7.45) ABG O2 Sat (Measured) (94.0-98.0) % Potassium 5.1 H (3.4-4.6) mmol/L Chloride 96 L (97-106) mmol/L Carbon Dioxide 34.4 H (24-32.6) mmol/L BUN/Creatinine Ratio (9.0-21.6) Random Glucose 325 H D (70-110) mg/dL - Exam Constitutional: Present: Alert, Oriented x3, Cooperative, Well developed, No distress, Morbidly obese ENT Exam: Present: normal ENT inspection, hearing grossly normal Neck: Present: normal inspection. Absent: lymphadenopathy (R), lymphadenopathy (L), thyromegaly Breasts: Present: Other - male gynecomastia Respiratory: Present: no respiratory distress, rhonchi Cardiovascular/Chest: Present: normal peripheral pulses, regular rate, rhythm, no gallop, no JVD, no murmur, edema - chronic venous insufficiency and probably pulmonary hypertension. needs echo as outpatient. Abdomen: Present: Normal bowel sounds, soft, nontender, nondistended, no hepatospenomegaly, no masses, obese /Rectal: Present: Exam deferred Extremity: Present: normal range of motion, normal capillary refill, lower extremity edema Skin Exam: Present: normal color, warm/dry, no cyanosis Lymphatic: Present: no adenopathy Neurologic: Present: normal mood/affect. Absent: motor weakness Appearance: Present: appropriate appearance, appropriate insight, neat, no memory impairment Eye contact: Present: cooperative, good eye contact, normal speech Thoughts: Present: normal thought pattern Assessment/Plan - Problems/Diagnosis (1) Bronchitis Problem: Acute Narrative: improved. continue IV steroids, IV antibiotics and nebulizer treatments. taper O2 as able. possibly home tomorrow. (2) Acute and chronic respiratory failure Problem: Acute Qualifiers: Respiratory failure complication: hypoxia and hypercapnia Qualified Code(s): J96.21 - Acute and chronic respiratory failure with hypoxia; J96.22 - Acute and chronic respiratory failure with hypercapnia Narrative: has improved. will try to taper O2. we will use BIPAP when sleeping, but otherwise only as needed when awake. he needs a new BIPAP machine at home, so a script was printed today for him to obtain one as an outpatient. perhaps family or friends could get one today so it's available when he goes home. (3) Morbid obesity with body mass index (BMI) of 50.0 to 59.9 in adult Problem: Chronic (4) Pickwickian syndrome Problem: Chronic (5) Tobacco abuse Problem: Chronic Narrative: doing well on nicotine patches. is going to try to stay off cigarettes as an outpatient. should have patches when he goes home. (6) STARR (obstructive sleep apnea) Problem: Chronic
[2019-12-15] MEDS: ENOXAPARIN SODIUM 40 MG/0.4 ML SYRG SC SCH (10:07)
[2019-12-16] MEDS: ALBUTEROL SULFATE/IPRATROPIUM 3 ML NEBU IH SCH ×6 (02:13→22:50)
[2019-12-16] MEDS: NICOTINE 21 MG PATC TD SCH (04:33)
[2019-12-16] MEDS: METHYLPREDNISOLONE SOD SUCC/PF 125 MG/2 ML VIAL IV SCH ×3 (04:34→16:59)
[2019-12-16 06:50] LABS: Hematocrit 49.7 % (42.0-52.0); Hemoglobin 15.2 gm/dL (13.5-18.0); Mean Cell Volume 96.7 fl (78-100); Mean Corpuscular Hemoglobin 29.6 pg (27-31); Mean Corpuscular Hgb Conc 30.6 g/dl (32-36); Mean Platelet Volume 10.4 fl (8-11.3); Neutrophil # 23.7 K/mm3 (1.3-6.0); Neutrophil % 87.7 % (42-75.0); Platelet Count 189 K/mm3 (150-450); Red Blood Count 5.14 M/mm3 (4.7-6.0); Red Cell Distribution Width 18.3 % (11.5-14.0)
[2019-12-16 07:06] LABS: Anion Gap 10.1 mmol/L (6.8-13.8); BUN/Creatinine Ratio 20.2 (9.0-21.6); Carbon Dioxide 31.3 mmol/L (24-32.6); Estimated Creat Clear 122.1; Potassium 5.4 mmol/L (3.4-4.6)
[2019-12-16 07:21] LABS: Total Cells Counted 100
[2019-12-16 07:31] LABS: Lymphocyte 6 % (20-51); Monocyte 4 % (0-9); Neutrophil 90 % (42-75); Neutrophil # 24.3 K/mm3 (1.3-6.0); Platelet Estimate Normal (NORMAL); RBC Morphology Normal (NORMAL)
[2019-12-16] MEDS: ENOXAPARIN SODIUM 40 MG/0.4 ML SYRG SC SCH (09:13)
[2019-12-16] MEDS: predniSONE 20 MG TABLET PO SCH (17:24)
--- NOTE | 2019-12-16 22:46 | PN ---
Subjective - Date and Time Seen Date: 12/16/19 Time: 09:20 Subjective Narrative: Patient sitting comfortably in bed. Breathing easy. Denies shortness of breath, cough, chest pain, wheezing or rhonchi. ABG slightly worse this morning than it was yesterday. White blood cell count also elevated but likely due to steroids. Patient states he feels much better than he did previously. Not using his incentive surrounded. BiPAP currently set at 20/12. Acidosis resolv ed though has a metabolic compensation. Objective - Review of Systems Generalized/Overall Review: Denies: Weakness, Chills, Fever Respiratory: Denies: Cough, Shortness of Breath, Wheezing Cardiac: Denies: Chest Pain, Edema, Palpitations Abdominal: Denies: Nausea, Vomiting Genitourinary Symptoms: Reports: No Symptoms Reported Musculoskeletal Complaints: Reports: No Symptoms Reported - Vitals Vitals: Last Vital Signs Temp 36.4 C 12/16/19 18:28 Pulse 107 H 12/16/19 20:40 Resp 22 H 12/16/19 20:40 BP 111/52 12/16/19 18:28 Pulse Ox 92 L 12/16/19 20:40 - Abnormal Lab Findings Abnormal Lab Findings: Abnormal Lab Results 12/16/19 12/16/19 12/16/19 Range/Units 06:00 06:30 06:45 WBC 27.0 H D (4.0-10.5) K/mm3 MCHC 30.6 L (32-36) g/dl RDW 18.3 H (11.5-14.0) % Immature Gran % (Auto) 2.10 H (0.001-0.429) % Immature Gran # (Auto) 0.56 H (0.000-0.0310) K/mm3 Neutrophils % 87.7 H (42-75.0) % Neutrophils % (Manual) 90 H (42-75) % Lymphocytes % 6.2 L (20-51) % Lymphocytes % (Manual) 6 L (20-51) % Neutrophils # 23.7 H (1.3-6.0) K/mm3 Neutrophils # (Manual) 24.3 H (1.3-6.0) K/mm3 Monocytes # (Manual) 1.1 H (0.0-1.0) k/mm3 pCO2 58.8 H (35.0-48.0) mmHg pO2 58.4 L (83.0-108.0) mmHg HCO3 31.9 H (21.0-28.0) mmol/L Total CO2 33.7 H (19.0-24.0) mmol/L Base Excess 4.4 H (-2.0-3.0) mmol/L ABG O2 Sat (Measured) 88.5 L (94.0-98.0) % Sodium 131 L (132-142) mmol/L Potassium 5.4 H (3.4-4.6) mmol/L Chloride 95 L (97-106) mmol/L Random Glucose 348 H (70-110) mg/dL - Exam Constitutional: Present: Alert, Oriented x3, Cooperative, Morbidly obese ENT Exam: Present: hearing grossly normal. Absent: nasal congestion, nasal drainage, pharyngeal erythema Neck: Present: non-tender, supple Respiratory: Present: lungs clear - Poor airflow, difficult to hear, no respiratory distress, decreased breath sounds - Due to body habitus Cardiovascular/Chest: Present: regular rate, rhythm - Distant heart sounds, no murmur Abdomen: Present: soft, nontender, nondistended Skin Exam: Present: normal color, warm/dry Appearance: Present: appropriate appearance, appropriate insight Thoughts: Present: normal thought pattern, normal mood /affect Assessment/Plan Plan Narrative: Clinically patient is improving. Will stop IV steroids, start oral steroids to be completed in 7-day burst. Continue Rocephin. Encourage incentive spirometry as patient has poor airflow and poor oxygen exchange. Patient to use his BiPAP more this evening. We will continue oxygen via nasal cannula as needed to maintain sats. Patient not currently using oxygen at home, he has desatted quite often with any activity. He may need oxygen to go home with if this does not improve today and overnight. If it does not patient can go home tomorrow with oral antibiotics and steroids. Will repeat CBC in the morning, repeat ABG in the morning. Hypertension well-controlled Nurse to call questions or concerns. - Problems/Diagnosis (1) Acute and chronic respiratory failure Problem: Acute Qualifiers: Respiratory failure complication: hypoxia and hypercapnia Qualified Code(s): J96.21 - Acute and chronic respiratory failure with hypoxia; J96.22 - Acute and chronic respiratory failure with hypercapnia (2) Pickwickian syndrome Problem: Chronic (3) Hypoxia Problem: Acute (4) Morbid obesity with body mass index (BMI) of 50.0 to 59.9 in adult Problem: Chronic (5) STARR (obstructive sleep apnea) Problem: Chronic
[2019-12-17] MEDS: ALBUTEROL SULFATE/IPRATROPIUM 3 ML NEBU IH SCH ×7 (02:57→22:09)
[2019-12-17] MEDS: NICOTINE 21 MG PATC TD SCH (05:33)
[2019-12-17 07:29] LABS: Hemoglobin 15.6 gm/dL (13.5-18.0); Mean Cell Volume 96.7 fl (78-100); Mean Platelet Volume 9.9 fl (8-11.3); Neutrophil # 14.7 K/mm3 (1.3-6.0); Neutrophil % 78.2 % (42-75.0); Platelet Count 168 K/mm3 (150-450); Red Blood Count 5.38 M/mm3 (4.7-6.0); Red Cell Distribution Width 18.6 % (11.5-14.0); White Blood Count 18.8 K/mm3 (4.0-10.5)
[2019-12-17] MEDS: predniSONE 20 MG TABLET PO SCH (10:18)
[2019-12-17] MEDS: ENOXAPARIN SODIUM 40 MG/0.4 ML SYRG SC SCH (10:19)
--- NOTE | 2019-12-17 17:53 | PN ---
Subjective - Date and Time Seen Date: 12/17/19 Time: 17:38 Subjective Narrative: Patient feels well, slept well overnight. No longer having shortness of breath or difficulty breathing. He still has a cough that is nonproductive. Wore BiPAP all night. ABG showed slightly worsening acidosis secondary to increased CO2 retention. WBC downtrended overnight. VSS and he is afebrile. Objective - Review of Systems Generalized/Overall Review: Denies: Weakness, Chills, Fever EENTM: Reports: No Symptoms Reported Respiratory: Reports: Cough. Denies: Shortness of Breath, Stridor, Wheezing Cardiac: Denies: Chest Pain, Edema, Palpitations Abdominal: Denies: Nausea, Vomiting Genitourinary Symptoms: Reports: No Symptoms Reported Musculoskeletal Complaints: Reports: No Symptoms Reported Neurological: Reports: No Symptoms Reported Skin: Reports: No Symptoms Reported Endocrine: Reports: No Symptoms Reported - Vitals Vitals: Last Vital Signs Temp 36.3 C 12/17/19 14:59 Pulse 80 12/17/19 14:59 Resp 20 12/17/19 14:59 BP 148/76 H 12/17/19 14:59 Pulse Ox 91 L 12/17/19 14:59 - Abnormal Lab Findings Abnormal Lab Findings: Abnormal Lab Results 12/17/19 12/17/19 Range/Units 05:30 07:23 WBC 18.8 H D (4.0-10.5) K/mm3 MCHC 30.0 L (32-36) g/dl RDW 18.6 H (11.5-14.0) % Immature Gran % (Auto) 1.80 H (0.001-0.429) % Immature Gran # (Auto) 0.33 H (0.000-0.0310) K/mm3 Neutrophils % 78.2 H (42-75.0) % Lymphocytes % 12.5 L (20-51) % Neutrophils # 14.7 H (1.3-6.0) K/mm3 Monocytes # 1.3 H (0.0-1.0) k/mm3 pCO2 67.4 H (35.0-48.0) mmHg pO2 55.4 L (83.0-108.0) mmHg HCO3 33.6 H (21.0-28.0) mmol/L Total CO2 35.6 H (19.0-24.0) mmol/L Base Excess 4.7 H (-2.0-3.0) mmol/L ABG pH 7.32 L (7.35-7.45) ABG O2 Sat (Measured) 85.2 L (94.0-98.0) % - Exam Constitutional: Present: Alert, Oriented x3, Cooperative, Morbidly obese ENT Exam: Present: hearing grossly normal Neck: Present: non-tender, supple Respiratory: Present: decreased breath sounds - Secondary to body habitus. Absent: normal breath sounds - Poor airflow difficulty to hear, crackles Cardiovascular/Chest: Present: regular rate, rhythm - Distant heart sounds, no murmur Abdomen: Present: soft, nontender, nondistended Appearance: Present: appropriate appearance, appropriate insight Eye contact: Present: cooperative, good eye contact Thoughts: Present: normal thought pattern, normal mood /affect Assessment/Plan Plan Narrative: Patient has worsening acidosis with ABGs from this morning even though initially they started to improve. We will adjust his BiPAP: Decrease his expiratory pressure from 12-10, continue inspiratory pressure at 20. Repeat ABGs in the morning. Continue steroids orally. Otherwise vital signs been stable has been afebrile. Hopefully home tomorrow. Blood pressure stable Nurse to call questions or concerns - Problems/Diagnosis (1) Acute and chronic respiratory failure Problem: Acute Qualifiers: Respiratory failure complication: hypoxia and hypercapnia Qualified Code(s): J96.21 - Acute and chronic respiratory failure with hypoxia; J96.22 - Acute and chronic respiratory failure with hypercapnia (2) Pickwickian syndrome Problem: Chronic (3) Hypoxia Problem: Acute (4) Morbid obesity with body mass index (BMI) of 50.0 to 59.9 in adult Problem: Chronic (5) STARR (obstructive sleep apnea) Problem: Chronic
[2019-12-18] MEDS: ALBUTEROL SULFATE/IPRATROPIUM 3 ML NEBU IH SCH ×4 (02:36→15:03)
[2019-12-18] MEDS: NICOTINE 21 MG PATC TD SCH (02:55)
[2019-12-18] MEDS ORDERED: DILTIAZEM HCL 180 MG CAP.SR.24H PO SCH (09:45)
[2019-12-18] MEDS: predniSONE 20 MG TABLET PO SCH (10:35)
[2019-12-18] MEDS: ENOXAPARIN SODIUM 40 MG/0.4 ML SYRG SC SCH (10:36)
[2019-12-18] MEDS ORDERED: [UNRECOGNIZED DRUG - OTHER] SCH (12:15)
[2019-12-18] MEDS ORDERED: OXYGEN SCH (12:15)
--- NOTE | 2019-12-18 12:29 | DS ---
(1) Bronchitis Problem: Acute (2) Acute and chronic respiratory failure Problem: Acute Qualifiers: Respiratory failure complication: hypoxia and hypercapnia Qualified Code(s): J96.21 - Acute and chronic respiratory failure with hypoxia; J96.22 - Acute and chronic respiratory failure with hypercapnia (3) Pickwickian syndrome Problem: Chronic (4) Morbid obesity with body mass index (BMI) of 50.0 to 59.9 in adult Problem: Chronic (5) STARR (obstructive sleep apnea) Problem: Chronic (6) Tobacco abuse Problem: Chronic (7) Benign essential hypertension Problem: Chronic Date of Discharge:: 12/18/19 Hospital Course: Admitted with acute bronchitis. He also had hypoxemic hypercarbic respiratory failure. He clinically feels much better, still has a cough, but his arterial blood gases still show hypoxemia and hypercarbia. At rest his O2 sats are mid to high 80s. When walking his O2 sats dropped into the 70s. Following admission he was treated with BiPAP even during the day. He has obstructive sleep apnea and uses BiPAP at home. He was also given antibiotics, steroids and nebulized DuoNeb. He feels he is back to baseline except he still has a cough. He is able to eat without difficulty. Although his oxygen levels dropped while walking, his only symptom while doing that is some dyspnea which resolves after sitting down. His blood pressure was consistently elevated while he was in the hospital. We will therefore start diltiazem. He was prescribed rosuvastatin the end of last year, but he has not taken it. His diet is poor. For example for lunch today he had mashed potatoes with gravy, Japanese fries, breaded meat with gravy, ice cream with chocolate syrup and a small salad. I advised both him and his family to follow a Mediterranean diet, for which I gave him a sample meal plan today. He seems to be doing well not smoking and using Chantix, he wants to stop smoking so we will send him home with a prescription for Chantix. Given his obstructive sleep apnea plus pickwickian syndrome, as an outpatient I think he needs an echocardiogram to check for right-sided hypertension and right-sided heart failure. While in the hospital, we brought up the possibility of bariatric surgery, which he is now thinking about. Procedures Performed: none Results and Findings: Lab Pending Results 02/26/20 21:47: Lactic Acid, Venous 2.1 H 12/13/19 21:48: WBC 14.2 H, RBC 4.99, Hgb 14.7, Hct 49.0, MCV 98.2, MCH 29.5, MCHC 30.0 L, RDW 18.7 H, Plt Count 156, MPV 10.2, Immature Gran % (Auto) 3.20 H, Immature Gran # (Auto) 0.45 H, Neutrophils % 67.6, Lymphocytes % 18.2 L, Monocytes % 6.9, Eosinophils % 3.3 H, Basophils % 0.8, Nucleated RBC % 0.0, Neutrophils # 9.6 H, Lymphocytes # 2.57, Monocytes # 1.0, Eosinophils # 0.5, Absolute Basophils 0.1 12/13/19 21:48: Sodium 140, Plasma Sodium 142, Potassium 3.9, Chloride 101, Carbon Dioxide 34.6 H, Anion Gap 8.3, BUN 10, Creatinine 0.98, Est GFR (Non-Af Amer) 91, BUN/Creatinine Ratio 10.2, Random Glucose 206 H, Calcium 8.6, Calcium Adj for Albumin 8.9, Total Bilirubin 0.4, AST 36, ALT 61, Alkaline Phosphatase 79, Troponin I Less than 0.017, B-Natriuretic Peptide 43, Total Protein 7.0, Albumin 3.2 L 12/13/19 21:48: D-Dimer 0.69 H 12/13/19 22:57: pCO2 67.8 H, pO2 77.6 L, HCO3 29.5 H, Total CO2 31.6 H, Base Excess 0.3, ABG pH 7.26 L, ABG O2 Sat (Measured) 93.1 L 12/14/19 01:05: Influenza Type A Ag Negative, Influenza Type B Ag Negative 12/14/19 04:04: Lactic Acid, Venous 1.3 12/14/19 04:42: pCO2 100.5 H*, pO2 84.4, HCO3 36.6 H, Total CO2 39.7 H, Base Excess 4.0 H, ABG pH 7.18 L*, ABG O2 Sat (Measured) 92.9 L 12/14/19 06:05: pCO2 79.0 H*, pO2 70.1 L, HCO3 27.4, Total CO2 29.8 H, Base Excess -3.2 L, ABG pH 7.16 L*, ABG O2 Sat (Measured) 88.2 L 12/14/19 07:51: WBC 14.3 H, RBC 5.46, Hgb 16.1, Hct 54.5 H, MCV 99.8, MCH 29.5, MCHC 29.5 L, RDW 19.5 H, Plt Count 148 L, MPV 9.9, Immature Gran % (Auto) 3.10 H , Immature Gran # (Auto) 0.45 H, Neutrophils % 69.8, Lymphocytes % 15.5 L, Monocytes % 7.4, Eosinophils % 3.2 H, Basophils % 1.0, Nucleated RBC % 0.1, Neutrophils # 10.0 H, Lymphocytes # 2.21, Monocytes # 1.1 H, Eosinophils # 0.5, Absolute Basophils 0.1 12/14/19 07:51: Sodium 140, Plasma Sodium 141, Potassium 5.0 H D, Chloride 99, Carbon Dioxide 36.7 H, Anion Gap 9.3, BUN 8, Creatinine 1.05, Est GFR (Non-Af Amer) 84, BUN/Creatinine Ratio 7.6 L, Random Glucose 158 H, Calcium 8.5, B- Natriuretic Peptide 34 12/14/19 09:30: pCO2 70.7 H*, pO2 43.1 L, HCO3 33.2 H, Total CO2 35.3 H, Base Excess 3.8 H, ABG pH 7.29 L, ABG O2 Sat (Measured) 71.7 L 12/14/19 13:00: pCO2 69.9 H, pO2 64.0 L, HCO3 31.1 H, Total CO2 33.2 H, Base Exc ess 1.7, ABG pH 7.27 L, ABG O2 Sat (Measured) 88.6 L 12/14/19 17:03: pCO2 64.9 H, pO2 79.4 L, HCO3 28.3 H, Total CO2 30.3 H, Base Excess -0.6, ABG pH 7.26 L, ABG O2 Sat (Measured) 93.6 L 12/15/19 06:20: WBC 19.8 H D, RBC 5.24, Hgb 15.3, Hct 51.5, MCV 98.3, MCH 29.2, MCHC 29.7 L, RDW 18.1 H, Plt Count 171, MPV 10.3, Immature Gran % (Auto) 2.20 H, Immature Gran # (Auto) 0.44 H, Neutrophils % 84.7 H, Lymphocytes % 8.9 L, Monocytes % 3.8, Eosinophils % 0.1, Basophils % 0.3, Nucleated RBC % 0.1, Neutrophils # 16.8 H, Lymphocytes # 1.77, Monocytes # 0.8, Eosinophils # 0.0, Absolute Basophils 0.1 12/15/19 06:20: Sodium 135, Plasma Sodium 139, Potassium 5.1 H, Chloride 96 L, Carbon Dioxide 34.4 H, Anion Gap 9.7, BUN 11, Creatinine 1.09, Est GFR (Non-Af Amer) 81, BUN/Creatinine Ratio 10.1, Random Glucose 325 H D, Calcium 8.9 12/15/19 08:40: pCO2 52.2 H, pO2 86.1, HCO3 24.8, Total CO2 26.4 H, Base Excess -2.4 L, ABG pH 7.30 L, ABG O2 Sat (Measured) 95.4 12/16/19 06:00: pCO2 58.8 H, pO2 58.4 L, HCO3 31.9 H, Total CO2 33.7 H, Base Excess 4.4 H, ABG pH 7.35, ABG O2 Sat (Measured) 88.5 L 12/16/19 06:30: Sodium 131 L, Plasma Sodium 135, Potassium 5.4 H, Chloride 95 L, Carbon Dioxide 31.3, Anion Gap 10.1, BUN 20 D, Creatinine 0.99, Est GFR (Non-Af Amer) 90, BUN/Creatinine Ratio 20.2, Random Glucose 348 H, Calcium 9.0 12/16/19 06:45: WBC 27.0 H D, RBC 5.14, Hgb 15.2, Hct 49.7, MCV 96.7, MCH 29.6, MCHC 30.6 L, RDW 18.3 H, Plt Count 189, MPV 10.4, Immature Gran % (Auto) 2.10 H, Immature Gran # (Auto) 0.56 H, Neutrophils % 87.7 H, Neutrophils % (Manual) 90 H, Lymphocytes % 6.2 L, Lymphocytes % (Manual) 6 L, Monocytes % 3.6, Monocytes % (Manual) 4, Eosinophils % 0.1, Basophils % 0.3, Nucleated RBC % 0.0, Neutrophils # 23.7 H, Neutrophils # (Manual) 24.3 H, Lymphocytes # 1.68, Lymphocytes # (Manual) 1.6, Monocytes # 1.0, Monocytes # (Manual) 1.1 H, Eosinophils # 0.0, Absolute Basophils 0.1, Platelet Estimate Normal, RBC Morphology Normal 12/17/19 05:30: pCO2 67.4 H, pO2 55.4 L, HCO3 33.6 H, Total CO2 35.6 H, Base Excess 4.7 H, ABG pH 7.32 L, ABG O2 Sat (Measured) 85.2 L 12/17/19 07:23: WBC 18.8 H D, RBC 5.38, Hgb 15.6, Hct 52.0, MCV 96.7, MCH 29.0, MCHC 30.0 L, RDW 18.6 H, Plt Count 168, MPV 9.9, Immature Gran % (Auto) 1.80 H, Immature Gran # (Auto) 0.33 H, Neutrophils % 78.2 H, Lymphocytes % 12.5 L, Monocytes % 6.8, Eosinophils % 0.3, Basophils % 0.4, Nucleated RBC % 0.0, Neutrophils # 14.7 H, Lymphocytes # 2.35, Monocytes # 1.3 H, Eosinophils # 0.1, Absolute Basophils 0.1 12/18/19 08:00: pCO2 61.6 H, pO2 61.9 L, HCO3 32.6 H, Total CO2 34.5 H, Base Excess 4.6 H, ABG pH 7.34 L, ABG O2 Sat (Measured) 89.8 L Discharge Location: Home Disposition: Home self-care Condition: Stable Discharge Activity: Activity as tolerated Discharge Diet: Other - Mediterranean diet Additional Patient Instructions (free text): Off work until I see him in 1 week. BiPAP at night. Add 24 7 oxygen. During the day, 2 L/min nasal cannula. At night bleed in 2 L/min for his BiPAP. Office appointment with me in 1 week. Echocardiogram prior to the appointment. Please call if you have problems or questions. Complete Home Medications List: Complete Home Medication List: BIPAP 0 .ROUTE .MEDSUPPLY #1 ea 12/15/19 Acetaminophen [Tylenol] 650 mg PO QID PRN tablet 12/18/19 BIPAP See Protocol .ROUTE .MEDSUPPLY #1 12/18/19 Diltiazem HCl [Cardizem Cd] 180 mg PO Q24H #0 cap.sr.24h 12/18/19 Diltiazem HCl [Diltiazem 24Hr ER] 120 mg PO DAILY #30 cap.er.24h 12/18/19 Levofloxacin [Levaquin] 500 mg PO DAILY #7 tab 12/18/19 Portable oxygen 2 l .ROUTE .MEDSUPPLY #1 ea 12/18/19 Rosuvastatin Calcium 40 mg PO DAILY #30 tab 12/18/19 Varenicline Tartrate [Chantix Starting Month Box] 1 ea PO ONCE #1 box 12/18/19 Varenicline Tartrate [Chantix] 1 mg PO BID #60 tab 12/18/19 predniSONE [Prednisone] 3 tab PO BID #30 tab 12/18/19
[2019-12-18 16:23] VITALS: BP 140/80
[2019-12-18] MEDS ORDERED: ROSUVASTATIN CALCIUM 20 MG TABLET PO SCH (21:00)
== END 2019-12-18 15:30 | disposition home or self-care (01) | DRG 189 ==
LOC: ER 21:22 → MS 12-14 02:07
PROVIDERS: ADMIT Internal Medicine; ATTEND Allergy & Immunology
CPT/HCPCS: 36415; 36600; 71020; 71046; 71275; 80048; 80053; 82803; 83519; 83605; 83880; 84484; 85007; 85025; 85379; 87400; 87449; 93005; 94640; 94660; 94664; 94760; 96365; 96375; 99285; Q9963; Q9967